=== PATIENT | female | born 1955 | race Caucasian/White ===

== ENCOUNTER → 2023-01-16 | Day surgery (SDC) | payer MEDICARE ==
[~2023-01-16] MED LIST: LACTATED RINGER'S 1,000 ML ONE; LISINOPRIL-HCT1 EAC2; MAGNESIUM PO; NOVOLIN R100 UNIT/1; PRAVASTATIN SOD10 MG; TACROLIMUS1 MG PO; TRESIBA FL200 UNIT/1 SQ; VITAMIN D312.5 MCG/5
[2023-01-16 11:06] LABS: INR 1.01; PROTHROMBIN TIME 13.5 seconds (11.9-14.5)
[2023-01-16 11:07] LABS: PARTIAL THROMBOPLASTIN TIME 30.3 seconds (23.8-35.5)
[2023-01-16 13:08] VITALS: TEMP 97
[2023-01-16 13:28] VITALS: BP 125/52; PULSE 81; RESP 18; O2SAT 99
== END | disposition home or self-care (01) ==
LOC: OR 09:55
PROVIDERS: ATTEND Internal Medicine Gastroenterology
DX: Z12.11 Encounter for screening for malignant neoplasm of colon (principal); D12.2 Benign neoplasm of ascending colon; D12.4 Benign neoplasm of descending colon; K52.9 Noninfective gastroenteritis and colitis, unspecified; K57.30 Diverticulosis of large intestine without perforation or abscess without bleeding; R12 Heartburn; E11.9 Type 2 diabetes mellitus without complications; I10 Essential (primary) hypertension; E78.5 Hyperlipidemia, unspecified; Z01.810 Encounter for preprocedural cardiovascular examination; Z79.4 Long term (current) use of insulin; Z79.899 Other long term (current) drug therapy; Z68.31 Body mass index [BMI] 31.0-31.9, adult
CPT/HCPCS: 36415; 45380; 45385; 82948; 85610; 85730; 88305; 93005; J7121

== ENCOUNTER → 2024-01-30 | Outpatient (REF) | payer MEDICARE ==
[~2024-01-30] MED LIST changes: -LACTATED RINGER'S 1,000 ML ONE
== END ==
LOC: US 12:43
PROVIDERS: ATTEND Internal Medicine Nephrology
DX: N18.31 Chronic kidney disease, stage 3a (principal)
CPT/HCPCS: 76770